=== PATIENT | female | born 1955 | race Caucasian/White ===

== ENCOUNTER 2017-09-14 21:57 | Inpatient (IN) ==
[~2017-09-14 21:57] MED LIST: LIDOCAINE 2%/ EPI 1:200,000 - 20 ML VIAL ONE; MEPIVACAINE HCL/PF 20 MG/1 ML ONE; MIDAZOLAM 5 MG/1 ML ONE; fentaNYL Inj 100 MCG/2 ML VIAL ONE
[2017-09-14] MEDS ORDERED: Lactated Ringers 1,000 ML PRIMARY IV ONE (22:04)
[2017-09-14] MEDS ORDERED: LIDOCAINE W/ SODIUM BICARB 0.5 ML SYR ONE (22:04)
[2017-09-14] MEDS ORDERED: Sodium Chloride 0.9% vial 20 ML ONE (23:46)
[2017-09-14] MEDS ORDERED: BUPivacaine Inj 0.25% PF - 10ml vial ONE (23:46)
[2017-09-14] MEDS ORDERED: BACITRACIN 50,000 UNIT VIAL IRRIG ONE (23:46)
[2017-09-15] MEDS ORDERED: ceFAZolin 1 GM VIAL ONE (00:01)
[2017-09-15] MEDS ORDERED: Lactated Ringers 1,000 ML PRIMARY IV ONE (00:01)
--- NOTE | 2017-09-15 00:53 | ORTHO.OP ---
- - -: See Dictated Operative Report Procedure Codes - Upper Extremity Procedures Primary Wrist/Hand/Elbow Procedure Code: Other CPT Code(s) (CPT code 99894 and CPT code 21659) Secondary Wrist/Hand/Elbow Procedure Code: Other CPT Code(s) (Please note the history and physical was written out on short form history and physical so than and M visit for initial hospital visit level II)
[2017-09-15] MEDS ORDERED: HYDROmorphone 2 MG/1 ML IVP PRN (00:56)
[2017-09-15] MEDS ORDERED: ONDANSETRON 4 MG/2 ML VIAL IVP PRN (00:56)
[2017-09-15] MEDS ORDERED: NORMAL SALINE 10 ML SYRINGE FLUSH IVP PRN (00:56)
[2017-09-15 01:12] VITALS: RESP 16
[2017-09-15] MEDS: ceFAZolin Inj 2gm (Premix) 2 GM/50 ML BAG IV SCH ×2 (01:16→09:28)
--- NOTE | 2017-09-15 02:18 | CRNA.PROGR ---
Anesthesia Time - - Start date: 09/14/17 (Day Change! Note minutes please) End date: 09/15/17 - Procedure/Recovery Time Anesthesia : Time In: 22:45 Anesthesia : Time Out: 23:13 Anesthesia : Total Time: 1468 - Block Time PreOp Block : Time In: 22:45 PreOp Block : Time Out: 22:55 PreOp Block : Total Time: 1450 - Total Anesthesia Time Total Anesthesia Time (minutes): 2918 - Other Weight: 94.529 kg Height: 5 ft 5 in Body Mass Index (BMI): 34.7 Physical Status: P2 Anesthesia Type: Axillary Block
--- NOTE | 2017-09-15 02:19 | CRNA.PROCE ---
Nerve Block Documentation - - Safety Measures: Time Out Taken, Site Verified - - Type of Nerve Block Used: Right Axillary Block Position for Nerve Block: Supine Moniters Used During Block: EKG, SPO2, NIBP Oxygen Supplemented: Yes Sedation Used - Enter Amount in Comment Field [ANES.SEDAT]: Midazolam (mg): Yes (12mg iv), Fentanyl (mcg): Yes (50 mcg iv) Skin Prep Used: ChloroPrep Technique: Other (periarterial 22 b bevel) Local Anesthetic - Enter Amt in Comment Field [ANES.LOCNB]: 2 % Xylocaine with Epinephrine 1:200,000 (mL): Yes (20ml), 2 % Mepivacaine (mL): Yes (20ml) Anesthesia Time - Block Time PreOp Block : Time In: 22:45 PreOp Block : Time Out: 22:55 - Other Weight: 94.529 kg Height: 5 ft 5 in Body Mass Index (BMI): 34.7
[2017-09-15] MEDS: HYDROcodone-APAP 7.5 MG-325 MG TABLET PO PRN ×2 (02:33→07:46)
[2017-09-15] MEDS: KETOROLAC 15 MG/1 ML VIAL IVP PRN ×2 (10:11→16:41)
[2017-09-15 13:06] VITALS: O2SAT 92
--- NOTE | 2017-09-15 16:53 | ORTHO.PROG ---
Last Taken Vital Signs: Vital Signs - Last Taken Temperature 97.8 F 09/15/17 13:00 Pulse Rate 71 09/15/17 13:00 Respiratory Rate 16 09/15/17 13:00 Blood Pressure 153/80 09/15/17 13:00 Pulse Ox 92 09/15/17 13:00 Subjective: Patient notes pain reasonably well controlled with Toradol 15 mg every 6 had nausea with hydrocodone Objective: Right sugar tong splint in place mild to moderate swelling of the fingers. Loosened splint sensory exam normal small finger and ring finger and fairly significant decreased sensation middle finger and relatively tingly thumb and index finger. Brisk refill. Splinting good condition. Gram stain negative cultures are Microbiology 09/15/17 00:13 Wrist - Right Gram Stain - Final 09/15/17 00:13 Wrist - Right Anaerobic Culture - Pending 09/15/17 00:13 Wrist - Right Aerobic Culture - Pending Vital Signs (24 hrs) Temp Pulse Pulse Resp BP BP Pulse Ox 09/15/17 13:00 97.8 F 71 16 153/80 92 09/15/17 10:10 72 153/88 91 09/15/17 07:24 97.4 F 87 16 170/81 93 09/15/17 07:00 87 09/15/17 05:00 97.3 F 81 16 158/78 92 09/15/17 01:00 97.5 F 88 16 149/66 94 09/14/17 22:45 99.3 F 80 15 162/88 94 pending Assessment: Right grade 1 open distal radius fracture Plan: Patient will be discharged home ice elevation sling use as needed. Patient continues hydrocodone 5/325 one to 2 every 4-6 hours as needed for pain. Patient also uses ibuprofen 800 mg every 8 hours when necessary pain. We'll plan on getting this stabilized with the plate and screws over the next several days. We will await cultures.
[2017-09-15 16:56] VITALS: BP 173/80; TEMP 97.3
== END 2017-09-15 17:36 | disposition home or self-care (01) | DRG 563 ==
LOC: OR 21:57 → OPS 23:46 → MED/SURG 09-15 00:45
PROVIDERS: ADMIT Orthopaedic Surgery; ATTEND Orthopaedic Surgery